=== PATIENT | male | born 1965 | race Caucasian/White ===

== ENCOUNTER 2024-04-04 22:37 | Outpatient (CLI) | payer BC, SELFPAY ==
--- OUTSIDE RECORDS SUMMARY | 2024-04-05 07:02 | XMS_ITS | Clinical Summary ---
Author Organization [email or web address] Address [place], [place] [address] Care Team Providers Care Quality Lab Technician Name Role Phone Dejuan Martines MD Primary [...] mouth every 4 hours if needed. Dispense commercial truck driver 1 Inhaler 1 02/27/2020 Active blood-glucose meterIndications:Cont [...] glucose scanning reader (FreeStyle Sara 14 Day [place]) miscIndications:Contr olled type 2 diabetes mellitus without [...] 06/10/2021 Active continuous glucose monitor SENSOR KIT (Nano[employer] Technologiesyle Sara 14 Day Sensor)Indications:Co ntrolled type 2 [...] years ago ----Original Message----- From: Rosendo Maravilla < > To: [email or web address] <[email or web address]> Sent: Oct 15, 2014 8:20 pm Subject: [...] feel free to contact me by email [email or web address] or phone [phone]. Rosendo Maravilla MD Director, Clinical Research Programs Major depressive disorder, r ecurrent episode, in full remission 01/26/2010 10/15/2014 Encounters Date Type Department Care Team Description 04/01/2024 12:15 PM CDT Office Visit [facility] [address] [place] [address] Elena Hinds NP Lower Back Pain (On right side x 5 days ) 04/01/2024 8:45 AM CDT Telemedicine [facility] [address] [place] [address] Rosa Maria Kurtz MD Abdominal Pain 04/01/2024 Travel 01/12/2024 8:30 AM CDT Orders Only [facility] [address] [place] [address] Lab, [facility] 01/12/2024 8:00 AM CDT Office Visit [facility] [address] [place] [address] Dejuan Martines MD Diabetes (Follow up); Cough (Productive cough, started about a week ago, runny nose) 01/12/2024 Travel 01/10/2024 Travel from Last 3 Months Immunizations Name Administration Dates Next Due AMB Influenza, IIV4 PF (=>6 mos Flulaval,Fluzone Fluarix)(Flu Clinic Only) 06/07/2018 COVID-19 Vaccine Spikevax (M oderna 50mcg/0.5mL) 12YO+ [id number] Formula PF 08/14/2023 COVID-19 vaccine (Sha-J& J) PF, MDV 11/14/2020 COVID-19 vaccine (Kalyra PharmaceuticalsBio NTech 30mcg/0.3mL) 12YO+ BIVALENT PF, MDV 07/05/2022 [...] Master's degree (e.g., MA, MS, Bubba, MEd, WELDING FOREMAN, GAMALIEL) 03/11/2022 Sex and Gender Information Value [...] st Contact Info) Description 11/08/2024 7:30 AM EMERGENCY MEDICINE PHYSICIAN ASSISTANT Office Visit [facility] [address] [place] [address] Edmundo Tobar MD [address] [place] [address] Health Maintenance Due Date Last Done Comments [...] ANTI HIV 1/2 Routine 08/23/2022 8:41 AM EMERGENCY MEDICINE PHYSICIAN ASSISTANT Screening for HIV (human immunodeficiency virus) ANTI HCV Routine 08/19/2022 7:59 AM EMERGENCY MEDICINE PHYSICIAN ASSISTANT Need for hepatitis C screening test from Last 3 Months or Most Recently Relevant to Health Maintenance Results * (ABNORMAL) UA W/ SEDIMENT EXAM REFLEXED PER CRITERIA (04/01/2024 12:15 PM CDT) COLOR Yellow Yellow Color 04/01/2024 12:45 PM CDT [facility] CLARITY Clear Clear Clarity 04/01/2024 12:45 PM CDT [facility] SPECIFIC GRAVITY,URINE <=1.005(A) 1.010, 1.015, 1.020, 1.025 04/01/2024 12:45 PM CDT [facility] PH,URINE 6.0 6.0, 7.0, 8.0, 5.5, 6.5, 7.5, 8.5 04/01/2024 12:45 PM CDT [facility] UROBILINOGEN, QUALITATIVE Normal Normal EU/dl 04/01/2024 12:45 PM CDT [facility] PROTEIN, URINE Negative Negative mg/dL 04/01/2024 12:45 PM CDT [facility] GLUCOSE, URINE Negative Negative mg/dL 04/01/2024 12:45 PM CDT [facility] KETONES,URINE Negative Negative mg/dL 04/01/2024 12:45 PM CDT [facility] BILIRUBIN,URI NE Negative Negative 04/01/2024 12:45 PM CDT [facility] OCCULT BLOOD,URINE Negative Negative 04/01/2024 12:45 PM T [facility] NITRITE Negative Negative 04/01/2024 12:45 PM T [facility] LEUKOCYTE ESTERASE Negative Negative 04/01/2024 12:45 PM T [facility] Urine URINE SPECIMEN / Unknown Non-Blood / Unknown 04/01/2024 12:15 PM CDT 04/01/2024 12:27 PM CDT Alondra Cohen NP URINE [facility] [address] [place] [address] * URINE ALBUMIN TO CREATININE RATIO, RANDOM (01/12/2024 8:38 AM CDT) ALB RAND URINE <12.0 mg/L 01/12/2024 3:55 PM CDT [facility] TRAL LAB[facility]ATORY CREATININE,URINE 0.32 g/L 01/12/20 3:55 PM T [facility] TRAL [facility] ALBUMIN TO CREATININE RATIO,RAND UR 01/12/2024 3:55 PM T [facility] Comment:Urine Albumin below measurement range, unable to calculate. Urine URINE SPECIMEN / Unknown Non-Blood / Unknown 01/12/2024 8:38 AM CDT 01/12/2024 8:38 AM CDT [facility] LABORATORY-CENTRAL LABORATORY - 01/12/2024 3:55 PM CDT If Albumin to Creatinine Ratio is elevated, consider the following: ? Elevations seen with incipient nephropathy associated ?? with diabetes mellitus or hypertension. Stress, exercise,hematuria, ?? and urinary tract infection may also produce elevated results. If clinically indicated, confirm with ?24 Hour Albumin to Creatinine Ratio. ?? Dejuan Martines MD URINE [facility]-CENTRAL LABORATORY [address] [place] [address], * (ABNORMAL) CBC WITH AUTO DIFFERENTIAL (01/12/2024 8:33 AM CDT) WHITE BLOOD COUNT 9.1 4.5 - 11.0 thou/cu mm 01/12/2024 8:42 AM CDT [facility] RED BLOOD COUNT 4.44 4.30 - 5.90 mil/cu mm 01/12/2024 8:42 AM CDT [facility] HEMOGLOBIN 13.5 13.5 - 17.5 g/dL 01/12/2024 8:42 AM CDT [facility] HEMATOCRIT 40.1 37.0 - 53.0 % 01/12/2024 8:42 AM CDT [facility] MCV 90 80 - 100 fL 01/12/2024 8:42 AM CDT [facility] MCH 30.4 26.0 - 34.0 pg 01/12/2024 8:42 AM CDT [facility] MCHC 33.7 32.0 - 36.0 g/dL 01/12/2024 8:42 AM CDT [facility] RDW 14.9 11.5 - 15.5 % 01/12/2024 8:42 AM CDT [facility] PLATELET COUNT 296 140 - 440 thou/cu mm 01/12/2024 8:42 AM CDT [facility] MPV 10.7 6.5 - 11.0 fL 01/12/2024 8:42 AM CDT [facility] % NEUT 51.2 % 01/12/2024 8:42 AM CDT [facility] % LYMPH 33.2 % 01/12/2024 8:42 AM CDT [facility] % MONO 10.2 % 01/12/2024 8:42 AM CDT [facility] % EOS 5.2 % 01/12/2024 8:42 AM CDT [facility] % BASO 0.2 % 01/12/2024 8:42 AM CDT [facility] ABSOLUTE NEUTROPHILS 4.7 1.7 - 7.0 thou/cu mm 01/12/2024 8:42 AM CDT [facility] ABSOLUTE LYMPHOCYTES 3.0(H) 0.9 - 2.9 thou/cu mm 01/12/2024 8:42 AM CDT [facility] ABSOLUTE MONOCYTES 0.9(H) <0.9 thou/cu mm 01/12/2024 8:42 AM CDT [facility] ABSOLUTE EOSINOPHILS 0.5(H) <0.5 thou/cu mm 01/12/2024 8:42 AM CDT [facility] ABSOLUTE BASOPHILS 0.0 <0.3 thou/cu mm 01/12/2024 8:42 AM CDT [facility] Blood BLOOD SPECIMEN / Unknown Venipuncture / Unknown 01/12/2024 8:33 AM CDT 01/12/2024 8:36 AM CDT Dejuan Martines MD HEMATOLOGY [facility] [address] [place] [address], * LIPID PANEL W REFLEX MEASURED LDL (01/12/2024 8:33 AM CDT) CHOLESTEROL,TOTAL 115 100 - 199 mg/dL 01/12/2024 4:31 PM CDT [facility] Comment: Cholesterol, Total Reference Ranges Desirable <200 mg/dL Borderline 200-239 mg/dL High >=240 mg/dL TRIGLYCERIDES 134 <150 mg/dL 01/12/2024 4:31 PM CDT [facility] LABORAT[facility] HDL CHOLESTEROL 41 >40 mg/dL 4:31 PM CDT [facility] TRAL LABORATORY NON-HDL CHOLESTEROL 74 <145 mg/dl 01/12/2024 4:31 PM CDT [facility] TRAL LAB[facility]ATORY CHOL/HDL RATIO 2.80 <4.50 01/12/2024 4:31 PM CDT [facility]AL LAB[facility] LDL CHOLESTEROL 47 <=130 mg/dL 01/12/2024 4:31 PM CDT [facility] VLDL CHOLESTEROL 27 <=30 mg/dL 01/12/2024 4:31 PM CDT [facility] TRAL LAB[facility] PROVIDER ORDERED STATUS RANDOM 01/12/2024 4:31 PM CDT [facility] TRAL [facility] Blood BLOOD SPECIMEN / Unknown Venipuncture / Unknown 01/12/2024 8:33 AM CDT 01/12/2024 8:36 AM CDT Dejuan Martines MD CHEMISTRY Performing Organization Address City/[facility]/ZIP Co de Phone Number [facility] [address] [place] [address], * VALPROIC ACID TOTAL (01/12/2024 8:33 AM CDT) [facility] VALPROIC ACID,TOTAL 55.1 50.0 - 100.0 ug/mL 01/12/2024 4:26 PM CDT [facility] TRAL LABOR[facility] DATE OF LAST DOSE 01/11/2024 01/12/2024 4:26 PM CDT [facility] TRAL LABORATORY TIME OF LAST DOSE 7:00 PM 01/12/2024 4:26 PM CDT [facility] TRAL [facility] Blood BLOOD SPECIMEN / Unknown Venipuncture / Unknown 01/12/2024 8:33 AM CDT 01/12/2024 8:38 AM CDT Edmundo Tobar MD CHEMISTRY [facility] [address] [place] [address], * URIC ACID (01/12/2024 8:33 AM CDT) URIC ACID 4.5 3.4 - 7.0 mg/dL 01/12/2024 4:31 PM CDT [facility] Blood BLOOD SPECIMEN / Unknown Venipuncture / Unknown 01/12/2024 8:33 AM CDT 01/12/2024 8:36 AM CDT Dejuan Martines MD [facility] [address] [place] [address] * HEMOGLOBIN A1C MONITORING (POCT) (01/12/2024 8:33 AM CDT) HEMOGLOBIN A1C MONITORING (POCT) 6.3 <=6.4 % 01/12/2024 8:47 AM CDT [facility] Blood BLOOD SPECIMEN / Unknown Venipuncture / Unknown 01/12/2024 8:33 AM CDT 01/12/2024 8:36 AM CDT Narrative [facility] - 01/12/2024 8:47 AM CDT [...] Anemias, Splenectomy ? Dejuan Martines MD CHEMISTRY [facility] [address] [place] [address], * HEPATIC FUNCTION PANEL (01/12/2024 8:33 AM CDT) ALBUMIN 4.4 4.0 - 4.9 g/dL 01/12/2024 4:26 PM CDT [facility] TRAL LABORATORY PROTEIN,TOTAL 7.0 6.0 - 8.0 g/dL 01/12/2024 4:26 PM CDT [facility] TRAL LAB[facility]ORY BILIRUBIN,TOTAL 0.3 0.0 - 1.2 mg/dL 01/12/2024 4:26 PM CDT [facility] TRAL LABORATORY BILIRUBIN,DIRECT <0.2 0.0 - 0.3 mg/dL 01/12/2024 4:26 PM CDT [facility] TRAL LABORATORY BILIRUBIN,INDIRE CT 01/12/2024 4:26 PM CDT [facility] Comment:Unable to calculate, Direct Bili <0.2 ALK PHOSPHATASE 51 40 - 129 IU/L 01/12/2024 4:26 PM CDT [facility] ALT (SGPT) 20 10 - 50 IU/L 01/12/2024 4:26 PM CDT [facility] AST (SGOT) 26 10 - 50 IU/L 01/12/2024 4:26 PM CDT [facility] TRAL [facility] Blood BLOOD SPECIMEN / Unknown Venipuncture / Unknown 01/12/2024 8:33 AM CDT 01/12/2024 8:38 AM CDT Edmundo Tobar MD CHEMISTRY [facility] [address] [place] [address], * (ABNORMAL) BASIC METABOLIC PANEL (01/12/2024 8:33 AM CDT) Pathologist [facility] SODIUM 139 136 - 145 mmol/L 01/12/2024 4:31 PM CDT [facility] TRAL LABORATORY POTASSIUM 4.8 3.5 - 5.1 mmol/L 01/12/2024 4:31 PM CDT [facility] TRAL LABORATORY CHLORIDE 101 98 - 107 mmol/L 01/12/2024 4:31 PM CDT [facility] TR[facility] LAB[facility]ORY CO2,TOTAL 26 22 - 29 mmol/L 01/12/2024 4:31 PM CDT [facility] TR[facility] LABORATORY ANION GAP 12 5 - 18 01/12/2024 4:31 PM T [facility] TR[facility] LAB[facility]ORY GLUCOSE 104(H) 70 - 99 mg/dL 01/12/2024 4:31 PM T [facility] TRAL LAB[facility]ORY CALCIUM 9.8 8.6 - 10.0 mg/dL 01/12/2024 4:31 PM CDT [facility] TRAL LAB[facility]ATORY BUN 7 6 - 20 mg/dL 01/12/2024 4:31 PM T [facility] LAB[facility] CREATININE 0.72 0.70 - 1.20 mg/dL 01/12/2024 4:31 PM T [facility] TRAL LAB[facility]ATORY BUN/CREAT RATIO 10 10 - 20 4:31 PM T [facility] TR[facility] LAB[facility] eGFR >90 >90 mL/min/1.7 3m2 01/12/2024 4:31 PM T [facility] TR[facility] LAB[facility]ORY Comment:As of 2021, eG FR [...] 8:36 AM CDT Dejuan Martines MD CHEMISTRY [facility] [address] [place] [address], * PSA TOTAL SCREEN (01/12/2024 8:33 AM CDT) PSA TOTAL (SCREEN) 1.95 <4.00 ng/mL 01/12/2024 5:12 PM CDT [facility] Blood BLOOD SPECIMEN / Unknown Venipuncture / Unknown 01/12/2024 8:33 AM CDT 01/12/2024 8:36 AM CDT Narrative [facility] - 01/12/2024 5:12 PM CDT The [...] be used interchangeably. Dejuan Martines MD LABORATORY [facility] [address] [place] [address], * ANTI HIV 1/2 (08/23/2022 8:41 AM EMERGENCY MEDICINE PHYSICIAN ASSISTANT) HIV-1/HIV-2 ANTIBODY Non-Reacti ve Non-Reacti ve 08/25/2022 1:31 AM EMERGENCY MEDICINE PHYSICIAN ASSISTANT [facility] TR[facility] LAB[facility]ORY Comment:HIV-1 p24 and HIV-1/ HIV-2 Ab not detected. Blood BLOOD SPECIMEN / Unknown Venipuncture / Unknown 08/23/2022 8:41 AM EMERGENCY MEDICINE PHYSICIAN ASSISTANT 08/23/2022 8:43 AM EMERGENCY MEDICINE PHYSICIAN ASSISTANT Dejuan Martines MD SEND OUTS [facility] [address] [place] [address], * ANTI HCV (08/19/2022 7:59 AM EMERGENCY MEDICINE PHYSICIAN ASSISTANT) HEPATITIS C ANTIBODY Non-React kimberlee Non-React kimberlee 08/21/2022 2:04 PM EMERGENCY MEDICINE PHYSICIAN ASSISTANT [facility] TRAL LABORATORY Comment:Antibodies to HCV no t detected; does not exclude the possibility of exposure to HCV. Blood BLOOD SPECIMEN / Unknown Venipuncture / Unknown 08/19/2022 7:59 AM EMERGENCY MEDICINE PHYSICIAN ASSISTANT 08/19/2022 7:59 AM EMERGENCY MEDICINE PHYSICIAN ASSISTANT Dejuan Martines MD SEND OUTS [facility] LABORATORY-CENTRAL LABORATORY [address] [place] [address], from Last 3 Months or Most Recently Relevant to Health Maintenance Care Teams Quality Lab Technician Relationship Specialty Start Date End Date Dejuan Martines MD [address] [place] [address] PCP - General Family Practice 07/09/15
== END 2024-04-04 22:38 | disposition home or self-care (01) ==
LOC: AMB 04-05 07:00
PROVIDERS: PCP Family Medicine; Visit Provider Family Medicine
DX: M54.9 Dorsalgia, unspecified (principal); R10.9 Unspecified abdominal pain
CPT/HCPCS: A0425; A0427

== ENCOUNTER 2024-04-04 23:00 | Emergency (ER) | payer BC, SELFPAY ==
[2024-04-04 23:08] VITALS: BP 149/112; PULSE 97; RESP 20; TEMP 36.8; O2SAT 92
--- NOTE | 2024-04-05 | CRLHL7_ITS ---
For Patients: As a result of the Century Cures Act, medical imaging exams and procedure reports are released immediately into your electronic medical record. You may view this report before your referring provider. If you have questions, please contact your health care provider. INDICATION: Right flank pain TECHNIQUE: CT Abdomen and pelvis without i.v. contrast. Coronal and sagittal reformats were obtained. COMPARISON: None FINDINGS: Lower chest: Unremarkable. Liver: Unremarkable. Spleen: Unremarkable. Pancreas: Unremarkable. Gallbladder: Unremarkable. Kidney: Unremarkable. No kidney or ureteral stones or obstruction seen. Adrenal: Unremarkable. Bowel: A fat-fluid level is noted in the duodenal bulb, likely from recent fatty meal. The appendix is not identified. Vascular: Unremarkable. Lymph: Unremarkable. Peritoneum: Unremarkable. No pneumoperitoneum is seen. No significant ascites is noted. Pelvis: Unremarkable. Soft tissue: Unremarkable. Bone: Bilateral chronic pars defects of L5 noted. IMPRESSION: 1. No CT correlate for the patient`s symptoms seen. Please note that all CT scans at this facility use dose modulation, iterative reconstruction, and/or weight-based dosing when appropriate to reduce radiation dose to as low as reasonably achievable. Dictated by: Noah Barriga MD @ 04/05/2024 01:22:52 (Electronically Signed)
[2024-04-05 00:14] LABS: Basophils Absolute Auto 0.02 K/uL (0.00-0.30); Basophils Percent Auto 0.2 % (0.0-3.0); Eosinophils Absolute Auto 0.35 K/uL (0.00-0.50); Eosinophils Percent Auto 3.9 % (0.0-7.0); Hematocrit 41.3 % (37.0-53.0); Hemoglobin* 13.5 gm/dL (13.5-17.5); Immature Granulocytes Abs Auto 0.05 K/uL (0.00-0.30); Immature Granulocytes Pct Auto 0.6 %; Lymphocytes Absolute Auto 2.76 K/uL (0.90-2.90); Mean Corpuscular HGB Conc 33 gm/dL (32-36); Mean Corpuscular Hemoglobin 30 pg (26-34); Mean Corpuscular Volume 90 fL (80-100); Monocytes Percent Auto 8.7 % (0.0-11.0); Neutrophils Absolute Auto 4.94 K/uL (1.7-7.0); Neutrophils Percent Auto 55.6 % (42.0-72.0); Platelet Count* 266 K/uL (140-440); Red Blood Count 4.58 m/uL (4.30-5.90); White Blood Count* 8.89 K/uL (4.50-11.00)
[2024-04-05 00:16] LABS: Slide Review Reflex No
--- NOTE | 2024-04-05 00:19 | ED.ABDPAIN ---
HPI - Abdominal Pain General Chief Complaint: Flank Pain Stated Complaint: abdominal pain Time Seen by Provider: 04/04/24 23:49 History of Present Illness HPI narrative: Patient is a E 58-year-old gentleman comes in today with 4 days of right flank pain. He was seen in the clinic as a line and a UA was negative. He was sent home and has persistence of pain. He has had no nausea no vomiting no fevers no chills no dysuria or hematuria. He states the pain is in the lateral flank on the right and is sharp. Has history of gout hypertension diabetes. It Related Data Home Medications ?Medication ?Instructions ?Recorded ?Confirmed allopurinol 300 mg tablet 300 mg PO DAILY 04/04/24 04/04/24 amlodipine 10 mg tablet 10 mg PO DAILY 04/04/24 04/04/24 atorvastatin 40 mg tablet 40 mg PO DAILY 04/04/24 04/04/24 benzonatate 200 mg capsule PO 04/04/24 divalproex 500 mg tablet,extended 500 mg PO 3XD 04/04/24 04/04/24 release 24 hr escitalopram oxalate 20 mg tablet 20 mg PO DAILY 04/04/24 04/04/24 fluticasone propionate 50 spray intranasal 04/04/24 mcg/actuation nasal spray,suspension metformin 500 mg tablet,extended 1,000 mg PO BID 04/04/24 04/04/24 release 24 hr olanzapine 5 mg tablet 5 mg PO QPM 04/04/24 04/04/24 sumatriptan succinate 50 mg tablet 50 mg PO Q2-4H PRN 04/04/24 04/04/24 (Imitrex) Allergies Allergy/AdvReac Type Severity Reaction Status Date / Time No Known Drug Allergies Allergy Verified 04/04/24 23:13 Review of Systems Status of ROS Reports: 10 or more systems reviewed and unremarkable except as noted in History and below [facility] Medical History Diabetes ?E11.9 - Type 2 diabetes mellitus without complications (ICD-10) Gout ?M10.9 - Gout, unspecified (ICD-10) Social History Smoking Status: Never smoker Do you use any of these nicotine containing products: None Second hand tobacco smoke exposure: No How often do you have a drink containing alcohol: never How often do you have six or more drinks on one occasion: Never AUDIT-C Alcohol total score: 0 Non-prescribed substance use: denies use service: No Exam Narrative: Exam Narrative: EXAM GENERAL: Patient appears comfortable and well. EYES: No scleral icterus. ENT: Tympanic membranes and oropharynx normal. THYROID: no thyroid nodules or thyromegaly. LYMPH: No supraclavicular or cervical lymphadenopathy. SKIN: Visible skin seen during exam normal or with benign process only. EXT: No dependent lower extremity pedal edema. HEART: Regular rate and rhythm with no murmurs, rubs, or gallops. LUNGS: Clear to auscultation bilaterally with no crackles or wheezes. ABD: Soft, non tender, non distended. PSYCH: Good eye contact, speech is not pressured. Const: Vital Signs, click to edit/add: Vital Signs - 24 hr 04/04/24 23:08 Temperature 98.3 F Pulse Rate [Pulse Oximeter] 97 Respiratory Rate 20 Blood Pressure [Ri ght Upper Arm] 149/112 H Pulse Oximetry 92 Oxygen Delivery Me thod Room Air Course Course ED Course: Patient seen and examined. It CT of the abdomen pelvis CBC CMP UA pending. Vital Signs Vital signs: Initial Vital Signs Temperature 98.3 F 04/04/24 23:08 Temperature Source Oral 04/04/24 23:08 Pulse Rate 97 04/04/24 23:08 Respiratory Rate 20 04/04/24 23:08 Blood Pressure 149/112 H 04/04/24 23:08 Blood Pressure Mean 124 H 04/04/24 23:08 Blood Pressure Position Supine 04/04/24 23:08 Pulse Oximetry 92 04/04/24 23:08 Oxygen Delivery Method Room Air 04/04/24 23:08 Vital Signs Temperature 98.3 F 04/04/24 23:08 Pulse Rate 97 04/04/24 23:08 Respiratory Rate 20 04/04/24 23:08 Blood Pressure 149/112 H 04/04/24 23:08 Pulse Oximetry 92 04/04/24 23:08 Oxygen Delivery Method Room Air 04/04/24 23:08 Temperature 98.3 F 04/04/24 23:08 Pulse Rate 97 04/04/24 23:08 Respiratory Rate 20 04/04/24 23:08 Blood Pressure 149/112 H 04/04/24 23:08 Pulse Oximetry 92 04/04/24 23:08 Oxygen Delivery Method Room Air 04/04/24 23:08 MDM - Abdominal Pain MDM Narrative Medical decision making narrative: Patient presents with right flank pain. He has a negative CT negative labs include a UA lipase CMP CBC. I believe is likely diagnosis musculoskeletal strain. Differential diagnosis includes but not limited to kidney stone acute abdomen appendicitis muscle strain. This time I did recommend rotation of Tylenol Motrin rest and fluids follow-up with his primary physician as needed. Lab Data Labs: Lab Results 04/04/24 04/04/24 Range/Units 00:10 01:25 WBC 8.89 (4.50-11.00) K/uL RBC 4.58 (4.30-5.90) m/uL Hgb 13.5 (13.5-17.5) gm/dL Hct 41.3 (37.0-53.0) % MCV 90 (80-100) fL MCH 30 (26-34) pg MCHC 33 (32-36) gm/dL RDW Coeff of Bessie 14.0 (11.5-15.5) % Plt Count 266 (140-440) K/uL Neut % (Auto) 55.6 (42.0-72.0) % Lymph % (Auto) 31.0 (20-44) % [place]ke % (Auto) 8.7 (0.0-11.0) % Eos % (Auto) 3.9 (0.0-7.0) % Baso % (Auto) 0.2 (0.0-3.0) % Neut # (Auto) 4.94 (1.7-7.0) K/uL Lymph # (Auto) 2.76 (0.90-2.90) K/uL [place]ke # (Auto) 0.80 (0.00-0.90) K/UL Eos # (Auto) 0.35 (0.00-0.50) K/uL Baso # (Auto) 0.02 (0.00-0.30) K/uL Abs Immat Gran (auto) 0.05 (0.00-0.30) K/uL Imm/Tot Granulo (auto) 0.6 % Sodium 138 (135-149) mmol/L Potassium 4.3 (3.6-5.1) mmol/L Chloride 102 (96-114) mmol/L Carbon Dioxide 24 (20-32) mmol/L Anion Gap 12 (7-15) mEq/L BUN 13 (7-30) mg/dL Creatinine 0.8 (0.5-1.5) mg/dL Estimated GFR 104 ml/min Glucose 124 H (60-115) mg/dL Calcium 9.8 (8.4-10.6) mg/dL Total Bilirubin 0.4 (0.1-1.5) mg/dL AST 30 (12-35) U/L ALT 20 (4-50) U/L Alkaline Phosphatase 47 (40-150) U/L Total Protein 7.3 (6.0-8.3) g/dL Albumin 4.6 (3.3-5.0) g/dL Lipase 93 (23-300) U/L Urine Color Yellow (Yellow) Urine Appearance Clear (Clear) Urine pH 6.0 (5.0-8.5) Ur Specific [place] 1.015 (1.000-1.030) Urine Protein Negative (Negative) Urine Glucose (UA) Negative (Negative) Urine Ketones Negative (Negative) Urine Blood Negative (Negative) Urine Nitrite Negative (Negative) Urine Bilirubin Negative (Negative) Urine Urobilinogen 0.2 (0.2-1.0) Ur Leukocyte Esterase Negative (Negative) Discharge Plan Discharge Clinical Impression: Muscle strain Patient Disposition: Home, Self-Care Condition: Stable Instructions: Muscle Strain (ED) Additional Instructions: Tylenol 650 every 6 hours as needed Motrin 600 every 6 hours as needed Ice Rest Follow-up with your doctor as needed. Activity Level: No Restrictions Discharge Diet: Regular Prescriptions: No Action atorvastatin 40 mg tablet 40 mg PO DAILY benzonatate 200 mg capsule PO olanzapine 5 mg tablet 5 mg PO QPM amlodipine 10 mg tablet 10 mg PO DAILY divalproex 500 mg tablet extended release 24 hr 500 mg PO 3XD allopurinol 300 mg tablet 300 mg PO DAILY fluticasone propionate 50 mcg/actuation spray,suspension INTRANASAL metformin 500 mg tablet extended release 24 hr 1,000 mg PO BID escitalopram oxalate 20 mg tablet 20 mg PO DAILY sumatriptan succinate [Imitrex] 50 mg tablet 50 mg PO Q2-4H PRN Rx Instructions: do not exceed 4 doses per 24 hrs Follow Up/Referrals: Dejuan Martines MD [Primary Care Provider] - Stand Alone Forms: [employer] Info Instructions
[2024-04-05 00:23] LABS: Albumin* 4.6 g/dL (3.3-5.0); Chloride* 102 mmol/L (96-114); Potassium* 4.3 mmol/L (3.6-5.1); Sodium* 138 mmol/L (135-149)
[2024-04-05 00:25] LABS: Anion Gap 12 mEq/L (7-15); Aspartate Amino Transferase* 30 U/L (12-35); Bilirubin Total* 0.4 mg/dL (0.1-1.5); Carbon Dioxide* 24 mmol/L (20-32); Creatinine* 0.8 mg/dL (0.5-1.5); Estimated Glomerular Filt Rate 104 ml/min
[2024-04-05 00:26] LABS: Alanine Aminotransferase* 20 U/L (4-50); Alkaline Phosphatase* 47 U/L (40-150); Blood Urea Nitrogen* 13 mg/dL (7-30); Calcium* 9.8 mg/dL (8.4-10.6); Glucose* 124 mg/dL (60-115); Lipase* 93 U/L (23-300); Total Protein* 7.3 g/dL (6.0-8.3)
--- OUTSIDE RECORDS SUMMARY | 2024-04-05 00:41 | XMS_ITS | Clinical Summary ---
Author Organization [employer] Address [place], [place] [address] Care Team Providers Care Vice President Of Engineering Name Role Phone Dejuan Martines MD Primary Care Provider Allergies Active Allergy Reactions Criticality Noted Date Comments Hydrochlorothiazide Other - Describe In Comment Field 07/22/2015 Stopped due to gout Medications Medication Sig Dispensed Refills Start Date End Date Status BiPapIndications:Obst ructive sleep apnea BIPAP machine for home use at pressure: 10/5 , Heated humidifier x 1, Humidifier chamber x 1, Full face mask with cushion x 1, Heated tubing x 1, Headgear x 1, Filters: Disposable x 1pk & Reusable x 1pk, Length of Need: 99 months, Frequency of use: Daily 1 Device 03/28/2017 Active albuterol HFA (VENTOLIN HFA) 90 mcg/actuation inhalerIndications:Mi ld intermittent asthma without complication Inhale 2 Puffs by mouth every 4 hours if needed. Dispense humanities teacher 1 Inhaler 1 02/27/2020 Active blood-glucose meterIndications:Cont rolled type 2 diabetes mellitus without complication, without long-term current use of insulin (HC) Inject subcutaneous. Dispense meter, test strips, lancets covered by pt ins. E11.9 NIDDM type II - Test 2 times/day. Reason: High A1C 1 Device 09/30/2020 Active blood sugar diagnostic (BLOOD GLUCOSE TEST) stripIndications:Cont rolled type 2 diabetes mellitus without complication, without long-term current use of insulin (HC) As directed. Test two times per day. 200 Strip 3 09/30/2020 Active ACCU-CHEK GUIDE GLUCOSE METER USE DIRECTED 09/30/2020 Active flash glucose scanning reader (FreeStyle Sara 14 Day [place]) miscIndications:Contr olled type 2 diabetes mellitus without complication, without long-term current use of insulin (HC) As directed. For use with Sara sensors 6 Each 3 12/01/2020 Active SUMAtriptan (IMITREX) 50 mg tabletIndications:Larry russ without status migrainosus, not intractable, unspecified migraine type Take 1 Tablet (50 mg) by mouth one time if needed for Migraine. Max dose: 200mg per 24 hrs. 30 tablet. 3 06/10/2021 Active lancetsIndications:Co ntrolled type 2 diabetes mellitus without complication, without long-term current use of insulin (HC) As directed. Test two times per day. 200 Each 3 06/10/2021 Active continuous glucose monitor SENSOR KIT (Bybanyle Sara 14 Day Sensor)Indications:Co ntrolled type 2 diabetes mellitus without complication, without long-term current use of insulin (HC) As directed. Wear each for 14 days 6 Each 01/23/2023 Active OLANzapine (ZYPREXA) 5 mg tabletIndications:Ran or depressive disorder, recurrent, moderate (HC),Borderline personality disorder in remission (HC) Take 1 Tablet (5 mg) by mouth at bedtime. 90 Tablet 12/06/2023 Active escitalopram oxalate (LEXAPRO) 20 mg tabletIndications:Ran or depressive disorder, recurrent, moderate (HC),Borderline personality disorder in remission (HC) Take 1 Tablet (20 mg) by mouth once daily. 90 Tablet 12/06/2023 Active divalproex (DEPAKOTE ER) 500 mg Extended-Release tabletIndications:Ran or depressive disorder, recurrent, moderate (HC),Borderline personality disorder in remission (HC) Take 3 Tablets (1,500 mg) by mouth at bedtime. 270 Tablet 3 12/06/2023 Active allopurinoL (ZYLOPRIM) 300 mg tabletIndications:Gou t involving toe of left foot, unspecified cause, unspecified chronicity Take 1 Tablet (300 mg) by mouth once daily. 90 Tablet 3 01/12/2024 Active amLODIPine (NORVASC) 10 mg tabletIndications:HTN (hypertension) Take 1 Tablet (10 mg) by mouth once daily. 90 Tablet 01/12/2024 Active atorvastatin (LIPITOR) 40 mg tabletIndications:Hyp erlipidemia, unspecified hyperlipidemia type Take 1 Tablet (40 mg) by mouth at bedtime. 90 Tablet 3 01/12/2024 Active metFORMIN (GLUCOPHAGE XR) 500 mg Extended-Release tabletIndications:Con trolled type 2 diabetes mellitus without complication, without long-term current use of insulin (HC) Take 2 Tablets (1,000 mg) by mouth two times daily with meals. 360 Tablet 1 01/12/2024 Active benzonatate (TESSALON) 200 mg capsuleIndications:Co ugh, unspecified type Take 1 Capsule (200 mg) by mouth 3 times daily if needed for Cough. 21 Capsule 01/12/2024 Active Active Problems Problem Noted Date Diagnosed Date Major depressive disorder, recurrent, moderate 0 03/11/2022 Controlled type 2 diabetes m ellitus without complication, without long-term current use of insulin 09/30/2020 Borderline personality disorder in remission CASSIE, 02/19/2017 AHI 27 03/28/2017 Hyperlipidemia, unspecified 02/08/2017 Migraine without status migrainosus, not intract able 07/10/2015 Cerebral palsy Asthma Essential hypertension Resolved Problems Problem Noted Date Diagnosed Date Resolved Date Major depressive disorder, r ecurrent episode, unspecified 09/10/2013 03/11/2022 Overview: email from patient's previous psychiatrist many years ago ----Original Message----- From: Rosendo Maravilla <[email or web address]> To: [email or web address]> Sent: Oct 15, 2014 8:20 pm Subject: Commentary on Leighton Manzanares: I'd rather send my comments to you and there is nothing I would ever say about you I would not say first to you. Leighton was under my care for about 15 years for the treatment of what is probably closest to bipolar type II. The main reason I would lean toward bipolar II is some rapid mood shifts, usually toward depression, some disinhibited behaviors and periods of depression with significant agitation that seemed to be mixed episodes. Confounding an accurate diagnosis (other than the distinctly phenomenologic basis of psychiatric diagnosis by DSM) was a panoply of developmental and environmental stresses that Leighton had to deal with in his late adolescence. While Leighton has not been under my care for the past 15 years, I have continued to have some contact with him and got to see him in person last year. He has matured into a thoughtful and compassionate adult. So while I treated him for bipolar II, that may no longer be the most pertinent diagnosis. He does have genetic loading on both sides likely for depression as well as possibly bipolar disorder with psychotic features. Leighton is one of the most intellectually creative people I have ever met. He has coped with a significant physical and some psychiatric disability with insight and dignity. If anything, it feels to me that he has more of a depressive presentation with little to still support much bipolarity, but I have not done a recent evaluation. If I can be of any help in Leighton's future care, please feel free to contact me by email [email or web address] or phone [phone]. Rosendo Maravilla MD Director, Clinical Research Programs Major depressive disorder, r ecurrent episode, in full remission 01/26/2010 10/15/2014 Encounters Date Type Department Care Team Description 04/01/2024 12:15 PM CDT Office Visit [facility] [address] [place] [address] Elena Hinds NP Lower Back Pain (On right side x 5 days ) 04/01/2024 8:45 AM CDT Telemedicine [facility] [address] [place] [address] Rosa Maria Kurtz MD Abdominal Pain 04/01/2024 Travel 01/12/2024 8:30 AM CDT Orders Only [facility] [address] [place] [address] Lab, [facility] 01/12/2024 8:00 AM CDT Office Visit [facility] [address] [place] [address] Dejuan Martines MD Diabetes (Follow up); Cough (Productive cough, started about a week ago, runny nose) 01/12/2024 Travel 01/10/2024 Travel from Last 3 Months Immunizations Name Administration Dates Next Due AMB Influenza, IIV4 PF (=>6 mos Flulaval,Fluzone Fluarix)(Flu Clinic Only) 06/07/2018 COVID-19 Vaccine Spikevax (M oderna 50mcg/0.5mL) 12YO+ [id number] Formula PF 08/14/2023 COVID-19 vaccine (Sha-J& J) PF, MDV 11/14/2020 COVID-19 vaccine (Twist BioscienceBio NTech 30mcg/0.3mL) 12YO+ BIVALENT PF, MDV 07/05/2022 COVID-19 vaccine (Pfizer-Bio NTech 30mcg/0.3mL) 12YO+ KARYNA-SUCROSE PF, MDV 02/21/2022 Hepatitis B (Adult) 08/23/2022,08/02/2021,2020 Influenza Virus, Unspecified 06/07/2018,05/29/20 13 Influenza, IIV3 (Age 6-35 mos) 05/29/2013 Influenza, IIV4 08/14/2023,,08/02/2021,2015,07/10/2015 Pneumococcal Poly,23-Valent (Pneumovax) 09/30/2020 Tdap 09/09/2015 Zoster (Shingrix-RZV, recombinant) 08/02/2021, Family History Medical History Relation Name Comments Heart attack Brother Alcoholism Father Heart Disease Maternal Grandfather Lung cancer Mother age 84 Psychiatric illness Mother Suicide Attempts Mother incomplete Cancer-colon Neg. 1 Cancer-prostate Neg. 2 Diabetes Neg. 3 Relation Name Status Comments Brother Father Maternal Grandfather Mother Neg. 1 Neg. 2 Neg. 3 Social History Tobacco Use Types Packs/Day Years Used Date Smoking Tobacco: Never Smokeless Tobacco: Never Tobacco Cessation:Counseling Given: No Alcohol Use Standard Drinks/Week Comments Never 0 (1 standard drink = 0.6 oz pur e alcohol) denied lifetime PHQ-2 Answer Date Recorded PHQ-2 TOTAL SCORE 1 12/06/2023 Social Connections Answer Date Recorded Frequency of Communication with Friends and Fami ly 0 08/14/2023 Alcohol Use Answer Date Recorded How often do you have a drink containing alcohol ? 0 03/11/2022 Average Number of Drinks Not on file 022 Frequency of Binge Drinking Not on file 070 04/2022 Financial Resource Strain Answer Date R ecorded Difficulty of Paying Living Expenses 3 08/14/2023 Difficulty of Paying Living Expenses Not on file 08/14/2023 Food Insecurity Answer Date Recorded Worried About Running Out of Food in the Last Ye ar 1 08/14/2023 Transportation Needs Answer Date Record ed Lack of Transportation (Medical) 1 08/14/2023 Housing Stability Answer Date Recorded Unable to Pay for Housing in the Last Year 1 08/14/2023 Education Answer Date Recorded What is the highest level of school you have completed or the highest degree you have received? Master's degree (e.g., MA, MS, Bubba, MEd, AVICULTURIST, GAMALIEL) 03/11/2022 Sex and Gender Information Value Date Recorded Sex Assigned at Not on file Gender Identity Not on file Sexual Orientation Not on file Obstetrics History Last Filed Vital Signs Vital Sign Reading Time Taken Comments Blood Pressure 138/90 04/01/2024 12:54 PM CDT Pulse 76 04/01/2024 12:09 PM CDT Temperature 36.3 ??C (97.3 ??F) 04/01/2024 12:09 PM C DT Respiratory Rate 18 04/01/2024 12:09 PM CDT Oxygen Saturation 97% 04/01/2024 12:09 PM CDT Inhaled Oxygen Concentration - - Weight 100.7 kg (222 lb) 04/01/2024 12:09 PM CDT Height 173.8 cm (5' 8.43) 01/23/2023 7:59 AM CD T Body Mass Index 33.34 01/23/2023 7:59 AM CDT Plan of Treatment Upcoming Encounters Date Type Department Care Team (Late st Contact Info) Description 11/08/2024 7:30 AM BUSINESS CONTINUITY CONSULTANT Office Visit [facility] [address] [place] [address] Edmundo Tobar MD [address] [place] [address] Health Maintenance Due Date Last Done Comments Colonoscopy through age 75 11/24/2012 Pneumococcal series for age 6-64 (2 of 2 - PCV) 09/30/2021 09/30/2020 BMI (ht and wt on same day) for age 18+ 01/24/2024 01/23/2023, 08/23/2022, 01/29/2021, Additional history exists Influenza for age 50-64 05/05/2024 08/14/20, 07/05/2022, 08/02/2021, Additional history exists Depression screening for age 12+ 12/05/2024 12/06/2023, 01/12/2023, 01/12/2023, Additional history exists Tetanus booster 09/09/2025 09/09/2015 Lipids for age 45-75 01/11/2029 01/12/2024, 01/18/2023, 01/27/2022, Additional history exists Tdap Completed 09/09/2015 Zoster (shingles) series for age 50+ Completed 08/02/2021, 07/21/2020 Hepatitis C screening for ag e 18-79 Completed 08/19/2022 HIV for age 15-65 Completed 08/23/2022 Hepatitis B series for Diabetes Completed 08/23/2022, 08/02/2021, 09/30/2020 COVID-19 vaccine series Completed 08/14/20, 07/05/2022, 02/21/2022, Additional history exists Procedures Procedure Name Priority Date/Time Associated Diagnosis Comments UA W/ SEDIMENT EXAM REFLEXED PER CRITERIA STAT 04/01/2024 12:15 PM CDT Right low back pain, unspecified chronicity, unspecified whether sciatica present URINE ALBUMIN TO CREATININE RATIO, RANDOM Routine 01/12/2024 8:38 AM CDT Controlled type 2 diabetes mellitus without complication, without long-term current use of insulin (HC) VALPROIC ACID TOTAL Routine 01/12/2024 8 :33 AM CDT Long-term use of high-risk medication HEPATIC FUNCTION PANEL Routine 01/12/2024 8:33 AM CDT Long-term use of high-risk medication CBC WITH AUTO DIFFERENTIAL Routine 01/12/2024 8:33 AM CDT Gout involving toe of left foot, unspecified cause, unspecified chronicity URIC ACID Routine 01/12/2024 8:33 AM CDT Gout involving toe of left foot, unspecified cause, unspecified chronicity PSA TOTAL SCREEN Routine 01/12/2024 8:33 AM CDT Prostate cancer screening BASIC METABOLIC PANEL Routine 01/12/2024 8:33 AM CDT Controlled type 2 diabetes mellitus without complication, without long-term current use of insulin (HC) CBC WITH AUTO DIFFERENTIAL Routine 01/12/2024 8:33 AM CDT Gout involving toe of left foot, unspecified cause, unspecified chronicity LIPID PANEL W REFLEX MEASURED LDL Routine 01/12/2024 8:33 AM CDT Controlled type 2 diabetes mellitus without complication, without long-term current use of insulin (HC) HEMOGLOBIN A1C Routine 01/12/2024 8:33 AM CDT Controlled type 2 diabetes mellitus without complication, without long-term current use of insulin (HC) ANTI HIV 1/2 Routine 08/23/2022 8:41 AM BUSINESS CONTINUITY CONSULTANT Screening for HIV (human immunodeficiency virus) ANTI HCV Routine 08/19/2022 7:59 AM BUSINESS CONTINUITY CONSULTANT Need for hepatitis C screening test from Last 3 Months or Most Recently Relevant to Health Maintenance Results * (ABNORMAL) UA W/ SEDIMENT EXAM REFLEXED PER CRITERIA (04/01/2024 12:15 PM CDT) COLOR Yellow Yellow Color 04/01/2024 12:45 PM CDT [facility] CLARITY Clear Clear Clarity 04/01/2024 12:45 PM CDT [facility] SPECIFIC GRAVITY,URINE <=1.005(A) 1.010, 1.015, 1.020, 1.025 04/01/2024 12:45 PM CDT [facility] PH,URINE 6.0 6.0, 7.0, 8.0, 5.5, 6.5, 7.5, 8.5 04/01/2024 12:45 PM CDT [facility] UROBILINOGEN, QUALITATIVE Normal Normal EU/dl 04/01/2024 12:45 PM CDT [facility] PROTEIN, URINE Negative Negative mg/dL 04/01/2024 12:45 PM CDT [facility] GLUCOSE, URINE Negative Negative mg/dL 04/01/2024 12:45 PM CDT [facility] KETONES,URINE Negative Negative mg/dL 04/01/2024 12:45 PM CDT [facility] BILIRUBIN,URI NE Negative Negative 04/01/2024 12:45 PM CDT [facility] OCCULT BLOOD,URINE Negative Negative 04/01/2024 12:45 PM T [facility] NITRITE Negative Negative 04/01/2024 12:45 PM T [facility] LEUKOCYTE ESTERASE Negative Negative 04/01/2024 12:45 PM T [facility] Urine URINE SPECIMEN / Unknown Non-Blood / Unknown 04/01/2024 12:15 PM CDT 04/01/2024 12:27 PM CDT Alondra Cohen NP URINE [facility] [address] [place] [address] * URINE ALBUMIN TO CREATININE RATIO, RANDOM (01/12/2024 8:38 AM CDT) ALB RAND URINE <12.0 mg/L 01/12/2024 3:55 PM CDT [facility] CREATININE,URINE 0.32 g/L 01/12/20 3:55 PM T [facility] ALBUMIN TO CREATININE RATIO,RAND UR 01/12/2024 3:55 PM T [facility] Comment:Urine Albumin below measurement range, unable to calculate. Urine URINE SPECIMEN / Unknown Non-Blood / Unknown 01/12/2024 8:38 AM CDT 01/12/2024 8:38 AM CDT [facility] - 01/12/2024 3:55 PM CDT If Albumin to Creatinine Ratio is elevated, consider the following: ? Elevations seen with incipient nephropathy associated ?? with diabetes mellitus or hypertension. Stress, exercise,hematuria, ?? and urinary tract infection may also produce elevated results. If clinically indicated, confirm with ?24 Hour Albumin to Creatinine Ratio. ?? Dejuan Martines MD URINE [facility] [address] [place] [address], * (ABNORMAL) CBC WITH AUTO DIFFERENTIAL (01/12/2024 8:33 AM CDT) WHITE BLOOD COUNT 9.1 4.5 - 11.0 thou/cu mm 01/12/2024 8:42 AM CDT [facility] RED BLOOD COUNT 4.44 4.30 - 5.90 mil/cu mm 01/12/2024 8:42 AM CDT [facility] HEMOGLOBIN 13.5 13.5 - 17.5 g/dL 01/12/2024 8:42 AM CDT [facility] HEMATOCRIT 40.1 37.0 - 53.0 % 01/12/2024 8:42 AM CDT [facility] MCV 90 80 - 100 fL 01/12/2024 8:42 AM CDT [facility] MCH 30.4 26.0 - 34.0 pg 01/12/2024 8:42 AM CDT [facility] MCHC 33.7 32.0 - 36.0 g/dL 01/12/2024 8:42 AM CDT [facility] RDW 14.9 11.5 - 15.5 % 01/12/2024 8:42 AM CDT [facility] PLATELET COUNT 296 140 - 440 thou/cu mm 01/12/2024 8:42 AM CDT [facility] MPV 10.7 6.5 - 11.0 fL 01/12/2024 8:42 AM CDT [facility] % NEUT 51.2 % 01/12/2024 8:42 AM CDT [facility] % LYMPH 33.2 % 01/12/2024 8:42 AM CDT [facility] % MONO 10.2 % 01/12/2024 8:42 AM CDT [facility] % EOS 5.2 % 01/12/2024 8:42 AM CDT [facility] % BASO 0.2 % 01/12/2024 8:42 AM CDT [facility] ABSOLUTE NEUTROPHILS 4.7 1.7 - 7.0 thou/cu mm 01/12/2024 8:42 AM CDT [facility] ABSOLUTE LYMPHOCYTES 3.0(H) 0.9 - 2.9 thou/cu mm 01/12/2024 8:42 AM CDT [facility] ABSOLUTE MONOCYTES 0.9(H) <0.9 thou/cu mm 01/12/2024 8:42 AM CDT [facility] ABSOLUTE EOSINOPHILS 0.5(H) <0.5 thou/cu mm 01/12/2024 8:42 AM CDT [facility] ABSOLUTE BASOPHILS 0.0 <0.3 thou/cu mm 01/12/2024 8:42 AM CDT [facility] Blood BLOOD SPECIMEN / Unknown Venipuncture / Unknown 01/12/2024 8:33 AM CDT 01/12/2024 8:36 AM CDT Dejuan Martines MD HEMATOLOGY [facility] [address] [place] [address], * LIPID PANEL W REFLEX MEASURED LDL (01/12/2024 8:33 AM CDT) CHOLESTEROL,TOTAL 115 100 - 199 mg/dL 01/12/2024 4:31 PM CDT [facility] Comment: Cholesterol, Total Reference Ranges Desirable <200 mg/dL Borderline 200-239 mg/dL High >=240 mg/dL TRIGLYCERIDES 134 <150 mg/dL 01/12/2024 4:31 PM CDT [facility] HDL CHOLESTEROL 41 >40 mg/dL 4:31 PM CDT [facility] NON-HDL CHOLESTEROL 74 <145 mg/dl 01/12/2024 4:31 PM CDT [facility] CHOL/HDL RATIO 2.80 <4.50 01/12/2024 4:31 PM CDT [facility] LDL CHOLESTEROL 47 <=130 mg/dL 01/12/2024 4:31 PM CDT [facility] VLDL CHOLESTEROL 27 <=30 mg/dL 01/12/2024 4:31 PM CDT [facility] PROVIDER ORDERED STATUS RANDOM 01/12/2024 4:31 PM CDT [facility] Blood BLOOD SPECIMEN / Unknown Venipuncture / Unknown 01/12/2024 8:33 AM CDT 01/12/2024 8:36 AM CDT Dejuan Martines MD CHEMISTRY Performing Organization Address City/[facility]/ZIP Co de Phone Number [facility] [address] [place] [address], * VALPROIC ACID TOTAL (01/12/2024 8:33 AM CDT) [facility] VALPROIC ACID,TOTAL 55.1 50.0 - 100.0 ug/mL 01/12/2024 4:26 PM CDT [facility] DATE OF LAST DOSE 01/11/2024 01/12/2024 4:26 PM CDT [facility] TIME OF LAST DOSE 7:00 PM 01/12/2024 4:26 PM CDT [facility] Blood BLOOD SPECIMEN / Unknown Venipuncture / Unknown 01/12/2024 8:33 AM CDT 01/12/2024 8:38 AM CDT Edmundo Tobar MD CHEMISTRY [facility] [address] [place] [address], * URIC ACID (01/12/2024 8:33 AM CDT) URIC ACID 4.5 3.4 - 7.0 mg/dL 01/12/2024 4:31 PM CDT [facility] Blood BLOOD SPECIMEN / Unknown Venipuncture / Unknown 01/12/2024 8:33 AM CDT 01/12/2024 8:36 AM CDT Dejuan Martines MD [facility] [address] [place] [address] * HEMOGLOBIN A1C MONITORING (POCT) (01/12/2024 8:33 AM CDT) HEMOGLOBIN A1C MONITORING (POCT) 6.3 <=6.4 % 01/12/2024 8:47 AM CDT [facility] Blood BLOOD SPECIMEN / Unknown Venipuncture / Unknown 01/12/2024 8:33 AM CDT 01/12/2024 8:36 AM CDT Narrative [facility] - 01/12/2024 8:47 AM CDT ? (<=6.9%) ? Indicates good control ? (7.0% to 7.9%) ? Indicates fair control ? (>=8.0%) ? Indicates poor control ?? NOTE: ??These thresholds are guidelines and ?individual targets may vary. Falsely low levels may be seen with: Recent Transfusion, Recent Significant Blood Loss, Hemolytic Diseases, or Falsely elevated levels may be seen with: Untreated Anemias, Splenectomy ? Dejuan Martines MD CHEMISTRY [facility] [address] [place] [address], * HEPATIC FUNCTION PANEL (01/12/2024 8:33 AM CDT) ALBUMIN 4.4 4.0 - 4.9 g/dL 01/12/2024 4:26 PM CDT [facility] PROTEIN,TOTAL 7.0 6.0 - 8.0 g/dL 01/12/2024 4:26 PM CDT [facility] BILIRUBIN,TOTAL 0.3 0.0 - 1.2 mg/dL 01/12/2024 4:26 PM CDT [facility] BILIRUBIN,DIRECT <0.2 0.0 - 0.3 mg/dL 01/12/2024 4:26 PM CDT [facility] BILIRUBIN,INDIRE CT 01/12/2024 4:26 PM CDT [facility] Comment:Unable to calculate, Direct Bili <0.2 ALK PHOSPHATASE 51 40 - 129 IU/L 01/12/2024 4:26 PM CDT [facility] ALT (SGPT) 20 10 - 50 IU/L 01/12/2024 4:26 PM CDT [facility] AST (SGOT) 26 10 - 50 IU/L 01/12/2024 4:26 PM CDT [facility] Blood BLOOD SPECIMEN / Unknown Venipuncture / Unknown 01/12/2024 8:33 AM CDT 01/12/2024 8:38 AM CDT Edmundo Tobar MD CHEMISTRY [facility] [address] [place] [address], * (ABNORMAL) BASIC METABOLIC PANEL (01/12/2024 8:33 AM CDT) Pathologist [facility] SODIUM 139 136 - 145 mmol/L 01/12/2024 4:31 PM CDT [facility] POTASSIUM 4.8 3.5 - 5.1 mmol/L 01/12/2024 4:31 PM CDT [facility] CHLORIDE 101 98 - 107 mmol/L 01/12/2024 4:31 PM CDT [facility] CO2,TOTAL 26 22 - 29 mmol/L 01/12/2024 4:31 PM CDT [facility] ANION GAP 12 5 - 18 01/12/2024 4:31 PM T [facility] GLUCOSE 104(H) 70 - 99 mg/dL 01/12/2024 4:31 PM T [facility] CALCIUM 9.8 8.6 - 10.0 mg/dL 01/12/2024 4:31 PM CDT [facility] BUN 7 6 - 20 mg/dL 01/12/2024 4:31 PM T [facility] CREATININE 0.72 0.70 - 1.20 mg/dL 01/12/2024 4:31 PM T [facility] BUN/CREAT RATIO 10 10 - 20 4:31 PM T [facility] eGFR >90 >90 mL/min/1.7 3m2 01/12/2024 4:31 PM T [facility] Comment:As of 2021, eG FR is calculated by the CKD-EPI creatinine equation without race adjustment. ??eGFR can be influenced by muscle mass, exercise, and diet. ??The reported eGFR is an estimation only and is only applicable if the renal function is stable. Blood BLOOD SPECIMEN / Unknown Venipuncture / Unknown 01/12/2024 8:33 AM CDT 01/12/2024 8:36 AM CDT Dejuan Martines MD CHEMISTRY [facility] [address] [place] [address], * PSA TOTAL SCREEN (01/12/2024 8:33 AM CDT) PSA TOTAL (SCREEN) 1.95 <4.00 ng/mL 01/12/2024 5:12 PM CDT [facility] Blood BLOOD SPECIMEN / Unknown Venipuncture / Unknown 01/12/2024 8:33 AM CDT 01/12/2024 8:36 AM CDT Narrative [facility] - 01/12/2024 5:12 PM CDT The test method changed on 02/28/2023. If this test has been used for serial monitoring, rebaselining is recommended. Rebaselining consists of 2 measurements, collected 3-6 weeks apart. The Vicki Ele[employer]ys total PSA assay is an electrochemiluminescence immunoassay ECLIA performed on the Vicki Kentrell e immunoassay analyzers. Values obtained with different assay methods may be different and cannot be used interchangeably. Dejuan Martines MD LABORATORY [facility] [address] [place] [address], * ANTI HIV 1/2 (08/23/2022 8:41 AM BUSINESS CONTINUITY CONSULTANT) HIV-1/HIV-2 ANTIBODY Non-Reacti ve Non-Reacti ve 08/25/2022 1:31 AM BUSINESS CONTINUITY CONSULTANT [facility] TRAL LABORATORY Comment:HIV-1 p24 and HIV-1/ HIV-2 Ab not detected. Blood BLOOD SPECIMEN / Unknown Venipuncture / Unknown 08/23/2022 8:41 AM BUSINESS CONTINUITY CONSULTANT 08/23/2022 8:43 AM BUSINESS CONTINUITY CONSULTANT Dejuan Martines MD SEND OUTS [facility] [address] [place] [address], * ANTI HCV (08/19/2022 7:59 AM BUSINESS CONTINUITY CONSULTANT) HEPATITIS C ANTIBODY Non-React kimberlee Non-React kimberlee 08/21/2022 2:04 PM BUSINESS CONTINUITY CONSULTANT [facility] TRAL LABORATORY Comment:Antibodies to HCV no t detected; does not exclude the possibility of exposure to HCV. Blood BLOOD SPECIMEN / Unknown Venipuncture / Unknown 08/19/2022 7:59 AM BUSINESS CONTINUITY CONSULTANT 08/19/2022 7:59 AM BUSINESS CONTINUITY CONSULTANT Dejuan Martines MD SEND OUTS [facility]AL LABORATORY [address] [place] [address], from Last 3 Months or Most Recently Relevant to Health Maintenance Care Teams Vice President Of Engineering Relationship Specialty Start Date End Date Dejuan Martines MD [address] [place] [address] PCP - General Family Practice 07/09/15
[2024-04-05 01:32] LABS: Appearance Urine Clear (Clear); Bilirubin Urine Negative (Negative); Blood Urine Negative (Negative); Color Urine Yellow (Yellow); Glucose Urine Negative (Negative); Ketones Urine Negative (Negative); Leukocyte Esterase Urine Negative (Negative); Nitrite Urine Negative (Negative); Protein Urine Negative (Negative); Specific Gravity Urine 1.015 (1.000-1.030); Urobilinogen Urine 0.2 (0.2-1.0)
--- NOTE | 2024-04-05 01:41 | PC.NURSE ---
Pt up at bedside to urinate, states pain increases with movement.
[2024-04-05 02:15] VITALS: PULSE 74; RESP 16; TEMP 36.4; O2SAT 97
[2024-04-05 02:16] VITALS: BP 140/74
== END 2024-04-05 02:17 | disposition home or self-care (01) ==
PROVIDERS: Emergency Provider Internal Medicine; PCP Family Medicine
DX: T14.8XXA Other injury of unspecified body region, initial encounter (principal)
CPT/HCPCS: 36415; 74176; 80053; 81003; 82962; 83690; 85025; 99283; 99284

== ENCOUNTER 2025-02-07 14:30 | Outpatient (RCR) | payer BC, SELFPAY | END 2025-04-16 12:02 | disposition home or self-care (01) | PROVIDERS: PCP Family Medicine; Visit Provider Family Medicine | DX: R26.81 Unsteadiness on feet (principal); G80.9 Cerebral palsy, unspecified; M62.81 Muscle weakness (generalized); R29.6 Repeated falls; Z51.89 Encounter for other specified aftercare | CPT/HCPCS: 97110; 97112; 97161; 97530 ==

== ENCOUNTER 2025-05-10 16:09 | Emergency (ER) | payer BC, SELFPAY ==
--- OUTSIDE RECORDS SUMMARY | 2025-05-10 16:12 | XMS_ITS | Clinical Summary ---
Author Organization [facility] Address [address] [place] [id number] Care Team Providers Care High Energy Forming Equipment Operator Name Role Phone Dejuan Martines MD Primary Care Provider Allergies Active Allergy Reactions Criticality Noted Date Comments Hydrochlorothiazide Other - Describe In Comment Field 07/22/2015 Stopped due to gout Medications BiPapIndications:O bstructive sleep apnea BIPAP machine for home use at pressure: 10/5 , Heated humidifier x 1, Humidifier chamber x 1, Full face mask with cushion x 1, Heated tubing x 1, Headgear x 1, Filters: Disposable x 1pk & Reusable x 1pk, Length of Need: 99 months, Frequency of use: Daily 1 Device 7 Active albuterol HFA (VENTOLIN HFA) 90 mcg/actuation inhalerIndications :Mild intermittent asthma without complication (HC) Inhale 2 Puffs by mouth every 4 hours if needed. Dispense quality control tech 1 Inhaler 1 0 Active blood-glucose meterIndications:C ontrolled type 2 diabetes mellitus without complication, without long-term current use of insulin (HC) Inject subcutaneous. Dispense meter, test strips, lancets covered by pt ins. E11.9 NIDDM type II - Test 2 times/day. Reason: High A1C 1 Device 1 Active blood sugar diagnostic (BLOOD GLUCOSE TEST) stripIndications:C ontrolled type 2 diabetes mellitus without complication, without long-term current use of insulin (HC) As directed. Test two times per day. 200 Strip 3 1 Active ACCU-CHEK GUIDE GLUCOSE METER USE DIRECTED 1 Active flash glucose scanning reader (FreeStyle Sara 14 Day [place]) miscIndications:Co ntrolled type 2 diabetes mellitus without complication, without long-term current use of insulin (HC) As directed. For use with Sara sensors 6 Each 3 1 Active lancetsIndications :Controlled type 2 diabetes mellitus without complication, without long-term current use of insulin (HC) As directed. Test two times per day. 200 Each 3 1 Active continuous glucose monitor SENSOR KIT (FreeStyle Sara 14 Day Sensor)Indications :Controlled type 2 diabetes mellitus without complication, without long-term current use of insulin (HC) As directed. Wear each for 14 days 6 Each 3 3 Active SUMAtriptan (IMITREX) 50 mg tabletIndications: Migraine without status migrainosus, not intractable, unspecified migraine type Take 1 Tablet (50 mg) by mouth one time if needed for Migraine. Max dose: 200mg per 24 hrs. 30 Tablet 1 4 Active budesonide-formote roL (SYMBICORT) 160-4.5 mcg/actuation (160-4.5 mcg each actuation) inhalerIndications :Moderate persistent asthma without complication (HC) Inhale 2 puffs twice daily and 1-2 puffs every 4 hours as needed for asthma exacerbations. Max 12 puffs per day. 91.8 g 3 5 Active OLANzapine (ZYPREXA) 5 mg tabletIndications: Major depressive disorder, recurrent, moderate (HC),Borderline personality disorder in remission (HC) Take 1 Tablet (5 mg) by mouth at bedtime. 90 Tablet 3 5 Active escitalopram oxalate (LEXAPRO) 20 mg tabletIndications: Major depressive disorder, recurrent, moderate (HC),Borderline personality disorder in remission (HC) Take 1 Tablet (20 mg) by mouth once daily. 90 Tablet 3 5 Active divalproex (DEPAKOTE ER) 500 mg Extended-Release tabletIndications: Major depressive disorder, recurrent, moderate (HC),Borderline personality disorder in remission (HC) Take 3 Tablets (1,500 mg) by mouth at bedtime. 270 Tablet 3 5 Active allopurinoL 300 mg tabletIndications: Gout involving toe of left foot, unspecified cause, unspecified chronicity Take 1 Tablet (300 mg) by mouth once daily. 90 Tablet 3 5 Active amLODIPine 10 mg tabletIndications: HTN (hypertension) Take 1 Tablet (10 mg) by mouth once daily. 90 Tablet 3 5 Active atorvastatin 40 mg tabletIndications: Hyperlipidemia, unspecified hyperlipidemia type Take 1 Tablet (40 mg) by mouth at bedtime. 90 Tablet 3 5 Active metFORMIN 500 mg Extended-Release tabletIndications: Controlled type 2 diabetes mellitus without complication, without long-term current use of insulin (HC) Take 2 Tablets (1,000 mg) by mouth two times daily. 360 Tablet 1 5 Active predniSONE (DELTASONE) 20 mg tabletIndications: Exacerbation of asthma, unspecified asthma severity, unspecified whether persistent (HC) 2 tabs oral daily for 5 days. 10 Tablet 5 Active benzonatate (TESSALON) 200 mg capsuleIndications :Acute cough Take 1 Capsule (200 mg) by mouth 3 times daily if needed for Cough. 21 Capsule 1 5 Active Active Problems Problem Noted Date Diagnosed [...] disorder, r ecurrent episode, unspecified 09/10/2013 03/11/2022 Overview (11/12/2014): email from patient's previous psychiatrist many years ago ----Original Message----- From: Rosendo Maravilla <[email or web address]> To: [email or web address]> Sent: Oct 15, 2014 8:20 pm Subject: [...] feel free to contact me by email [email or web address] or phone [phone]. Rosendo Maravilla MD Director, Clinical Research Programs Major depressive disorder, r ecurrent episode, in full remission 01/26/2010 10/15/2014 Encounters Date Type Department Care Team Description 03/14/2025 1:40 PM CDT Office Visit [facility] [address] [place] [address] Dejuan Martines MD Cough (Ongoing, discuss medication) 03/14/2025 Travel from Last 3 Months Immunizations Immunization Administration Dates Next Due AMB Influenza, IIV4 PF (=>6 mos Flulaval,Fluzone Fluarix)(Flu Clinic Only) 06/07/2018 COVID-19 VACCINE SPIKEVAX (M ODERNA 50MCG/0.5ML) 12YO+ PFS 08/14/2023 COVID-19 vaccine (Sha-J& J) PF, MDV 11/14/2020 COVID-19 vaccine ([employer] NTech 30mcg/0.3mL) 12YO+ BIVALENT PF, MDV 07/05/2022 COVID-19 vaccine ([employer] NTech 30mcg/0.3mL) 12YO+ KARYNA-SUCROSE PF, MDV 02/21/2022 Hepatitis B (Adult) 08/23/2022,08/02/2021,2020 INFLUENZA, IIV3 PF (AGE >= 6 MO) 08/07/2024 Influenza Virus, Unspecified 06/07/2018,05/29/20 13 Influenza, IIV3 (Age 6-35 mos) 05/29/2013 Influenza, IIV4 08/14/2023,,08/02/2021,2015,07/10/2015 Pneumococcal Conj 20-valent (Prevnar 20) 09/27/2024 Pneumococcal Poly,23-Valent (Pneumovax) 09/30/2020 Tdap 09/09/2015 Zoster (Shingrix-RZV, recombinant) 08/02/2021, Family History Medical History Relation Name Comments Coronary artery disease Brother Greg Heart attack Brother Greg Obesity Brother Greg Alcoholism Father Ean Heart Disease Maternal Grandfather Anxiety disorder Mother Kianna Depression Mother Kianna Lung cancer Mother Kianna age 84 Psychiatric illness Mother Kianna Suicide Attempts Mother Kianna incomplete Cancer-colon Neg. 1 Cancer-prostate Neg. 2 Diabetes Neg. 3 Relation Name Status Comments Brother Greg Alive Father Ean Maternal Grandfather Mother Kianna Neg. 1 Neg. 2 Neg. 3 Social History Tobacco Use Types Packs/Day Years Used Date Smoking Tobacco: Never Smokeless Tobacco: Never Tobacco Cessation:Counseling Given: No Alcohol Use Standard Drinks/Week Comments Never 0 (1 standard drink = 0.6 oz pur e alcohol) denied lifetime PHQ-2 Answer Date Recorded PHQ-2 TOTAL SCORE 2 11/07/2024 Social Connections Answer Date Recorded Do you often feel lonely or isolated from those around you? 0 08/14/2023 Alcohol Use Answer Date Recorded How often do you have a drink containing alcohol ? 0 03/11/2022 Average Number of Drinks Not on file 022 Frequency of Binge Drinking Not on file 04/2022 Financial Resource Strain Answer Date R ecorded Difficulty of Paying Living Expenses 3 08/14/2023 Difficulty of Paying Living Expenses Not on file 08/14/2023 Food Insecurity Answer Date Recorded Do you worry your food will run out before you are able to buy more? 1 06/24/2024 Transportation Needs Answer Date Record ed Does lack of transportation keep you from medica l appointments? 1 06/24/2024 Does lack of transportation keep you from work, meetings or getting things that you need? 1 06/24/2024 Housing Stability Answer Date Recorded What is your housing situation today? 1 06/24/2024 Utilities Answer Date Recorded Do you have trouble paying f or utilities (for example, heat, electricity, water, phone)? 1 06/24/2024 Education Answer Date Recorded What is the highest level of school you have completed or the highest degree you have received? 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 Not on file Not on file Not on file Obstetrics History Last Filed Vital Signs Vital Sign Reading Time Taken Comments Blood Pressure 131/85 03/14/2025 1:41 PM CDT Pulse 77 03/14/2025 1:41 PM CDT Temperature 36.4 C (97.6 F) 09/27/2024 7:55 AM PAYROLL ACCOUNTING CLERK Respiratory Rate 18 04/01/2024 12:09 PM CDT Oxygen Saturation 97% 03/14/2025 1:41 PM CDT Inhaled Oxygen Concentration - - Weight 96 kg (211 lb 9.6 oz) 03/14/2025 1:41 PM CDT Height 174.8 cm (5' 8.82) 01/24/2025 7:54 AM CD T Body Mass Index 31.41 01/24/2025 7:54 AM CDT Plan of Treatment Upcoming Encounters Date Type Department Care Team (Late st Contact Info) Description 07/28/2025 8:00 AM PAYROLL ACCOUNTING CLERK Orders Only [facility] [address] [place] [address] [place], [place] 07/30/2025 8:00 AM PAYROLL ACCOUNTING CLERK Office Visit [facility] [address] [place] [address] Dejuan Martines MD [address] [facility] [place] [address] 11/07/2025 7:30 AM PAYROLL ACCOUNTING CLERK Office Visit [facility] [address] [place] [address] Edmundo Tobar MD [address] [place] [address] Health Maintenance Due Date Last Done Comments Colonoscopy through age 75 11/24/2012 Influenza Vaccine (#1) 2025 4, 08/14/2023, 07/05/2022, Additional history exists Tetanus booster 09/09/2025 09/09/2015 Depression screening for age 12+ 11/08/2025 11/08/2024, 11/07/2024, 10/01/2024, Additional history exists BMI (ht and wt on same day) for age 18+ 01/24/2026 01/24/2025, 09/27/2024, 01/23/2023, Additional history exists Lipids for age 45-75 01/22/2030 01/22/2025, 01/12/2024, 01/18/2023, Additional history exists RSV vaccine for adults or (1 - 1-dose 75+ series) 11/24/2042 Zoster (shingles) series for age 50+ Completed 08/02/2021, 07/21/2020 Hepatitis C screening for ag e 18-79 Completed 08/19/2022 HIV for age 15-65 Completed 08/23/2022 Hepatitis B series for 19+ Completed 08/23, 08/02/2021, 09/30/2020 COVID-19 vaccine series Completed 08/07/20 24, 08/14/2023, 07/05/2022, Additional history exists Pneumococcal series for age 50+ Completed , 09/30/2020 Procedures Procedure Name Priority Date/Time Associated Diagnosis Comments LIPID PANEL W REFLEX MEASURED LDL Routine 01/22/2025 7:47 AM CDT Controlled type 2 diabetes mellitus without complication, without long-term current use of insulin (HC) ANTI HIV 1/2 Routine 08/23/2022 8:41 AM PAYROLL ACCOUNTING CLERK Screening for HIV (human immunodeficiency virus) ANTI HCV Routine 08/19/2022 7:59 AM PAYROLL ACCOUNTING CLERK Need for hepatitis C screening test from Last 3 Months or Most Recently Relevant to Health Maintenance Results * LIPID PANEL W REFLEX MEASURED LDL (01/22/2025 7:47 AM CDT) CHOLESTEROL, TOTAL 150 <200 mg/dL [facility] HDL CHOLESTEROL 49 > OR = 40 mg/dL [facility] ochristin Fields TRIGLYCERIDES 117 <150 mg/dL [facility] LDL-CHOLESTEROL 80 mg/dL (calc) code-[facility]ation-[facility] ochristin Fields Comment: Reference range: <100 Desirable range <100 mg/dL for primary prevention; <70 mg/dL for patients with CHD or diabetic patients with > or = 2 CHD risk factors. LDL-C is now calculated using the Pedro-Minor calculation, which is a validated novel method providing better accuracy than the Friedewald equation in the estimation of LDL-C. Pedro MOLINA et al. AUDREY. 2013;310(19): 9712-2219 (http://education.Airpush.Flimper/faq/VZY389) CHOL/HDLC RATIO 3.1 <5.0 (calc) [facility] NON HDL CHOLESTEROL 101 <130 mg/dL (calc) [facility] Comment: For patients with diabetes plus 1 major ASCVD risk factor, treating to a non-HDL-C goal of <100 mg/dL (LDL-C of <70 mg/dL) is considered a therapeutic option. Blood BLOOD SPECIMEN / Unknown 01/22/2025 7:47 AM CDT 01/22/2025 7:47 AM CDT us Dejuan Martines MD CHEMISTRY Final Result Dimple Dough [facility] [address] [place] [address], [place] [phone] [facility] [address] [place] [address] * ANTI HIV 1/2 (08/23/2022 8:41 AM PAYROLL ACCOUNTING CLERK) [facility] HIV-1/HIV-2 ANTIBODY Non-Reacti ve Non-Reacti ve 08/25/2022 1:31 AM PAYROLL ACCOUNTING CLERK [facility] Comment:HIV-1 p24 and HIV-1/ HIV-2 Ab not detected. Blood BLOOD SPECIMEN / Unknown Venipuncture / Unknown 08/23/2022 8:41 AM PAYROLL ACCOUNTING CLERK 08/23/2022 8:43 AM PAYROLL ACCOUNTING CLERK us Dejuan Martines MD SEND OUTS Final Result Performing Organization Address [facility]/ZIP Co de Phone Number [facility] [address] [place] [address], [place] * ANTI HCV (08/19/2022 7:59 AM PAYROLL ACCOUNTING CLERK) [facility] HEPATITIS C ANTIBODY Non-React kimberlee Non-React kimberlee 08/21/2022 2:04 PM PAYROLL ACCOUNTING CLERK [facility] Comment:Antibodies to HCV no t detected; does not exclude the possibility of exposure to HCV. Blood BLOOD SPECIMEN / Unknown Venipuncture / Unknown 08/19/2022 7:59 AM PAYROLL ACCOUNTING CLERK 08/19/2022 7:59 AM PAYROLL ACCOUNTING CLERK us Dejuan Martines MD SEND OUTS Final Result [facility] [address] [place] [address], [place] from Last 3 Months or Most Recently Relevant to Health Maintenance [facility] Care Teams High Energy Forming Equipment Operator Relationship Specialty Start Date End Date Dejuan Martines MD [address] [place] [address] PCP - General Family Practice 07/09/15
[2025-05-10 16:31] VITALS: BP 127/90; PULSE 104; RESP 20; TEMP 36.7; O2SAT 96; BMI 34.2
--- NOTE | 2025-05-10 16:33 | XR_ITS ---
Patient: JASMEET WALKER Facility:?[facility] Patient ID:?[id number] Site Patient ID:?[id number]. Site :?[id number] Study:?XRay-Extremity Right HUMERUS 2 VIEW-05/10/2025 4:58:37 PM Ordering Physician:?PROVIDER TEMP Final Report: Indication: Pain in biceps area after fall from standing Technique: Right humerus, 3 views. Comparison: None. Findings/Impression: No acute fracture or malalignment. The imaged joints are congruent. Soft tissues are unremarkable. Dictated by Shirley Walker MD @ 05/10/2025 5:14:16 PM Signed by:?Shirley Walker MD @05/10/2025 5:14:16 PM (Electronic Signature)
--- NOTE | 2025-05-10 17:51 | ED.GENADULT ---
HPI - General Adult General Chief complaint: Extremity Pain/Injury, Upper Stated complaint: fell- R arm injury Time Seen by Provider: 05/10/25 17:50 History of Present Illness HPI narrative: Patient was rushing to bathroom and slipped, falling and catching himself with his right arm. Patient is cradling this arm in triage and sling is applied. Feels pain in upper arm to shoulder . 59-year-old man presenting to the emergency department following an injury to his right arm. Apparently slipped in the bathroom and fell catching himself on his right arm. He describes an abduction of the right arm at the shoulder. Pain is in the upper right arm and right shoulder area. Not hit his head. There is no neck or back pain. No abdominal pain. Related Data Home Medications ?Medication ?Instructions ?Recorded ?Confirmed allopurinol 300 mg tablet 300 mg PO DAILY 04/04/24 05/10/25 amlodipine 10 mg tablet 10 mg PO DAILY 04/04/24 05/10/25 atorvastatin 40 mg tablet 40 mg PO DAILY 04/04/24 05/10/25 benzonatate 200 mg capsule PO 04/04/24 divalproex 500 mg tablet,extended 500 mg PO 3XD 04/04/24 05/10/25 release 24 hr escitalopram oxalate 20 mg tablet 20 mg PO DAILY 04/04/24 05/10/25 fluticasone propionate 50 spray intranasal 04/04/24 mcg/actuation nasal spray,suspension metformin 500 mg tablet,extended 1,000 mg PO BID 04/04/24 05/10/25 release 24 hr olanzapine 5 mg tablet 5 mg PO QPM 04/04/24 05/10/25 sumatriptan succinate 50 mg tablet 50 mg PO Q2-4H PRN 04/04/24 04/04/24 (Imitrex) Allergies Allergy/AdvReac Type Severity Reaction Status Date / Time No Known Drug Allergies Allergy Verified 05/10/25 16:29 Review of Systems Status of ROS: Reports: 6 or more systems reviewed and unremarkable except as noted in History and below [facility] Medical History Diabetes ?E11.9 - Type 2 diabetes mellitus without complications (ICD-10) Gout ?M10.9 - Gout, unspecified (ICD-10) Social History Smoking Status: Never smoker Do you use any of these nicotine containing products: None Second hand tobacco smoke exposure: No How often do you have a drink containing alcohol: never How often do you have six or more drinks on one occasion: Never AUDIT-C Alcohol total score: 0 Non-prescribed substance use: denies use service: No Exam Narrative: Exam Narrative: Pleasant. Appears rather uncomfortable. Has already been placed in a sling for comfort. Head is atraumatic. Neck is supple nontender. Back nontender. I am not really able to reproduce pain to palpation about the shoulder or AC joint. Clavicle without pain. Due to discomfort that is present in the inner upper humerus, he says ?my bicep, this also limits other aspects of the exam with wincing and exam resistance. There is pain to palpation somewhat on the medial aspect of the biceps on the inner upper humerus. Not in the axilla. There is no pain directly on insertion of the biceps the shoulder or on the forearm. I do not feel any defect to palpation throughout the right arm. Intact and strong distal pulses. No elbow pain. Unable to really test rotator strength. No pain to palpation about the chest wall. Const: Vital Signs, click to edit/add: Vital Signs - 24 hr 05/10/25 16:31 Temperature 98.1 F Pulse Rate [Pulse Oximeter] 104 H Respiratory Rate 20 Blood Pressure [Ri ght Upper Arm] 127/90 H Pulse Oximetry 96 Oxygen Delivery Me thod Room Air Documenting provider has reviewed patient's vital signs: yes Course Vital Signs Vital signs: Initial Vital Signs Temperature 98.1 F 05/10/25 16:31 Temperature Source Temporal Artery Scan 05/10/25 16:31 Pulse Rate 104 H 05/10/25 16:31 Respiratory Rate 20 05/10/25 16:31 Blood Pressure 127/90 H 05/10/25 16:31 Blood Pressure Mean 102 05/10/25 16:31 Pulse Oximetry 96 05/10/25 16:31 Oxygen Delivery Method Room Air 05/10/25 16:31 Vital Signs Temperature 98.1 F 05/10/25 16:31 Pulse Rate 104 H 05/10/25 16:31 Respiratory Rate 20 05/10/25 16:31 Blood Pressure 127/90 H 05/10/25 16:31 Pulse Oximetry 96 05/10/25 16:31 Oxygen Delivery Method Room Air 05/10/25 16:31 Temperature 98.1 F 05/10/25 16:31 Pulse Rate 104 H 05/10/25 16:31 Respiratory Rate 20 05/10/25 16:31 Blood Pressure 127/90 H 05/10/25 16:31 Pulse Oximetry 96 05/10/25 16:31 Oxygen Delivery Method Room Air 05/10/25 16:31 Medications Administered Medications: Discontinued Medications Generic Name Dose Route Start Last Admin Trade Name Corey PRN Reason Stop Dose Admin Ibuprofen 800 mg 05/10/25 18:00 05/10/25 18:09 Ibuprofen 400 Mg Tablet PO 05/10/25 18:01 800 mg ONCE ONE Administration Medical Decision Making MDM Narrative Medical decision making narrative: Given ibuprofen in the emergency department. This seems to be an arm strain. Certainly might be fracture. Not discretely involving the shoulder however. Exam is challenge by level of discomfort. He does not describe a jamming type injury into his shoulder. bicep tear? X-ray of the humerus involving the area reproducible pain looks to be without bony abnormality my independent review. I do not think there are other areas that need to be imaged given physical exam at this time. I think will benefit from some rest and icing and would recommend close follow-up for re-evaluation or hopefully a better exam can be accomplished. Injury may be involving rotator cuff musculature. See patient discharge plan for further discussion It seems that you have an arm strain of some sort. It is a little difficult to examine initially. You might have an injury to your rotator cuff or biceps otherwise. Wear this arm sling for comfort over the next week. Would also consider icing areas that hurt 2-3 times daily over the next few days. If you are not improved over this week, please follow-up. Call tomorrow for this potential follow-up with your primary care provider or Sports Medicine or Orthopedics phone [phone] Can take up to 800 mg of ibuprofen or up to 1000 mg of acetaminophen per dose. Medical Records Medical records reviewed: Yes I reviewed the patient's medical records Discharge Plan Discharge Clinical Impression: Upper arm pain Patient Disposition: Home, Self-Care Condition: Stable Additional Instructions: It seems that you have an arm strain of some sort. It is a little difficult to examine initially. You might have an injury to your rotator cuff or biceps otherwise. Wear this arm sling for comfort over the next week. Would also consider icing areas that hurt 2-3 times daily over the next few days. If you are not improved over this week, please follow-up. Call tomorrow for this potential follow-up with your primary care provider or Sports Medicine or Orthopedics phone [phone] Can take up to 800 mg of ibuprofen or up to 1000 mg of acetaminophen per dose. Prescriptions: No Action atorvastatin 40 mg tablet 40 mg PO DAILY benzonatate 200 mg capsule PO olanzapine 5 mg tablet 5 mg PO QPM amlodipine 10 mg tablet 10 mg PO DAILY divalproex 500 mg tablet extended release 24 hr 500 mg PO 3XD allopurinol 300 mg tablet 300 mg PO DAILY fluticasone propionate 50 mcg/actuation spray,suspension INTRANASAL metformin 500 mg tablet extended release 24 hr 1,000 mg PO BID escitalopram oxalate 20 mg tablet 20 mg PO DAILY sumatriptan succinate [Imitrex] 50 mg tablet 50 mg PO Q2-4H PRN Rx Instructions: do not exceed 4 doses per 24 hrs Follow Up/Referrals: Dejuan Martines MD [Primary Care Provider, Family Practice] Stand Alone Forms: [employer] Info Instructions
[2025-05-10] MEDS: IBUPROFEN 400 MG TABLET 800 MG PO (18:09)
== END 2025-05-10 18:24 | disposition home or self-care (01) ==
PROVIDERS: Emergency Provider Family Medicine; PCP Family Medicine
DX: M79.601 Pain in right arm (principal)
CPT/HCPCS: 73060; 99283; 99284; A9270

== ENCOUNTER 2025-06-17 07:51 | Outpatient (CLI) | payer BC, SELFPAY ==
--- NOTE | 2025-06-17 08:15 | MR_ITS ---
[address] [address] Phone:?[phone] Fax:?[phone] Referring Physician Information: Leon Krishnamurthy M.D. [id number] [facility] [address] Phone:?[phone] Fax:?[phone] Patient:Shantanu Walker D.O.B:?1965 Sex:?Male Phone:?[phone] [facility] MRN:?[id number] Exam Date:?06/17/2025 EXAM: MRI of the RIGHT SHOULDER, without contrast CLINICAL INFORMATION: Male, 59 years old, with right shoulder pain INDICATION: Evaluate for rotator cuff tear PRIOR SURGERY: None reported. PLAIN FILMS: Radiographs 05/20/2025. COMPARISONS: No prior MRIs available. TECHNICAL INFORMATION: Using a 1.5T MR scanner and a localizing surface coil: Coronals: PD, T2 T2, STIR Sagittals: PD, T2 Axials: PD, T2 SEDATION: None CONTRAST: None FINDINGS: Bones: Proximal humerus: There is extensive appearance of marrow signal hyperintensity in the proximal humerus centered at the level of the surgical neck with nondisplaced fracturing measuring 4.3 x 4.5 cm (coronal series 5 & 6 image 16, and sagittal series 8 image 9). Fracturing appears to extend anteriorly into the bicipital groove, as well (axial series 4 image 16-20). The fracture line also appears to extend toward the articular surface anteriorly, without displacement of the subarticular bone. Prominent associated periosteal edema signal is present. Glenoid: No fracture or marrow edema/pathology. No osseous Bankart lesion. Rotator cuff and muscles/tendons: Supraspinatus: Mild supraspinatus tendinopathy with small regions of low-grade interstitial delamination, without tear. Infraspinatus: No tendinopathy, tear or atrophy. Teres minor: No tendinopathy, tear or atrophy. Subscapularis: Mild thickening of the subscapularis distal tendon, without tear. Deltoid: No strain or atrophy. Coracoacromial arch: Acromion morphology: The acromion has type II morphology. No discrete subacromial osseous spur or os acromiale. Acromiohumeral space: The acromiohumeral space is within normal limits. Coracohumeral space: The coracohumeral space is within normal limits. Acromioclavicular joint: Joint: No acute injury, arthropathy, or inferior hypertrophy. Ligaments: Coracoclavicular ligaments are intact. Bursae: Subacromial-subdeltoid: Trace subacromial bursitis. Subcoracoid: No convincing subcoracoid bursal thickening/bursitis. Biceps tendon: The long head of the biceps tendon is present within the bicipital groove. The intra-articular and extra-articular segments are intact without tendinosis, tenosynovitis, or displacement. Glenohumeral joint: Effusion/cyst: Trace glenohumeral joint effusion with synovitis. Articular cartilage: There appears mild diffuse chondral heterogeneity and grade 2 thinning of the glenohumeral joint articular cartilage without well-defined full-thickness chondral defect. Minimal inferomedial humeral head osteophytic spurring. Loose bodies: No discrete intra-articular body within the joint. Labrum:?Tearing is noted involving the superior labrum extending posteriorly from the biceps anchor with the ganglion cyst in this region measuring 6 mm in greatest dimension. No other definite evidence for labral tear. Inferior glenohumeral ligament/axillary pouch:?There is attenuation and sprain/partial tearing involving the inferior glenohumeral ligament posteriorly at the humeral attachment (coronal series 5 image 19). Additional more low-grade sprain is seen to involve the anterior attachment on the glenoid. IMPRESSION: 1. Nondisplaced fracturing involving the surgical neck of the proximal humerus with extensive appearance of marrow edema. Fracturing extends anteriorly to the level of the bicipital groove, as well as the inferior component of the articular surface anteriorly. 2. Attenuation and partial tearing of the inferior glenohumeral ligament posteriorly at the humeral attachment, with more mild sprain anteriorly at the glenoid attachment. 3. Mild supraspinatus and subscapularis tendinopathy, without tear. 4. No tendinopathy, tear, or displacement of the long head of the biceps tendon. 5. Tearing of the superior labrum extending posteriorly from the biceps anchor with a small superior labral ganglion cyst measuring 6 mm. 6. Minimal/mild glenohumeral joint degenerative change. Trace joint effusion with synovitis. KME Electronically signed on 06/17/2025 8:07:00 PM by Michaela Hensley M.D.
== END 2025-06-17 07:52 | disposition home or self-care (01) ==
LOC: MRI 07:51
PROVIDERS: PCP Family Medicine; Visit Provider Orthopaedic Surgery Sports Medicine
DX: M25.511 Pain in right shoulder (principal); S42.201A Unspecified fracture of upper end of right humerus, initial encounter for closed fracture; S43.431A Superior glenoid labrum lesion of right shoulder, initial encounter; M25.411 Effusion, right shoulder
CPT/HCPCS: 73221